=== PATIENT | female | born 1995 | race Caucasian/White ===

== ENCOUNTER 2017-04-07 08:20 | Emergency (ER) | payer OTHER ==
[2017-04-07 08:32] VITALS: BMI 23.1
--- NOTE | 2017-04-07 09:33 | PDOC ---
History of Present Illness - General History Source: Patient Exam Limitations: No Limitations - History of Present Illness Initial Comments: 04/07/17 10:27 The patient is a 22 year old female, with a significant past medical history of migraines, asthma, and anxiety who presents to the emergency department with headache, lightheadedness, nausea, vomiting, and periumbilical pain since last night. 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 She reports typically having emesis along with dizziness during her migraine episodes. She states the periumbilical pain is dull, 3/10 and no a/w any lower abd pain and she feels is related to her migraines. Has a hx of ovarian cyst, but reports this does not feel like that. LMP was 03/28/17. She denies recent fevers or chills. She denies recent diarrhea or constipation. She denies recent dysuria, frequency, urgency or hematuria. She denies recent chest pain or shortness of breath. Allergies: NKA Past surgical history: None reported. Social history: Nonsmoker. Denies EtOH use and recreational drug use. <Clay Patel - Last Filed: 04/07/17 10:26> <Selene Pickard - Last Filed: 04/07/17 11:38> - General Chief Complaint: Pain Stated Complaint: NAUSEA/VOMITING Time Seen by Provider: 04/07/17 09:33 Past History <Clay Patel - Last Filed: 04/07/17 10:26> - Past Medical History Psychiatric Problems: Yes (anxiety) Other medical history: migranes - Suicide/Smoking/Psychosocial Hx Smoking History: Never smoked Hx Alcohol Use: No Drug/Substance Use Hx: No Substance Use Type: None <Selene Pickard - Last Filed: 04/07/17 11:38> - Past Medical History Allergies/Adverse Reactions: Allergies Allergy/AdvReac Type Severity Reaction Status Date / Time No Known Allergies Allergy Verified 04/07/17 08:32 Home Medications: Ambulatory Orders NK [No Known Home Medication] 04/07/17 Review of Systems - Review of Systems Able to Perform ROS?: Yes Comments:: 04/07/17 10:27 GENERAL/CONSTITUTIONAL: No fever or chills. No weakness. HEAD, EYES, EARS, NOSE AND THROAT: No change in vision. No ear pain or discharge. No sore throat. CARDIOVASCULAR: No chest pain or shortness of breath. RESPIRATORY: No cough, wheezing, or hemoptysis. GASTROINTESTINAL: +nausea, vomiting, and lower abdominal pain. No diarrhea or constipation. GENITOURINARY: No dysuria, frequency, or change in urination. MUSCULOSKELETAL: No joint or muscle swelling or pain. No neck or back pain. SKIN: No rash NEUROLOGIC: +headache No vertigo, loss of consciousness, or change in strength/ sensation. ENDOCRINE: No increased thirst. No abnormal weight change. HEMATOLOGIC/LYMPHATIC: No anemia, easy bleeding, or history of blood clots. ALLERGIC/IMMUNOLOGIC: No hives or skin allergy. <Clay Patel - Last Filed: 04/07/17 10:26> *Physical Exam - Vital Signs Last Vital Signs Temp Pulse Resp BP Pulse Ox 98.2 F 88 17 112/58 99 04/07/17 08:30 04/07/17 08:30 04/07/17 08:30 04/07/17 08:30 04/07/17 08:30 - Physical Exam Comments: 04/07/17 10:27 GENERAL: Awake, alert, and fully oriented, in no acute distress HEAD: No signs of trauma EYES: PERRLA, EOMI, sclera anicteric, conjunctiva clear ENT: Auricles normal inspection, hearing grossly normal, nares patent, oropharynx clear without exudates. Moist mucosa NECK: Normal ROM, supple, no lymphadenopathy, JVD, or masses LUNGS: Breath sounds equal, clear to auscultation bilaterally. No wheezes, and no crackles HEART: Regular rate and rhythm, normal S1 and S2, no murmurs, rubs or gallops ABDOMEN: Soft, nontender to deep palpation, normoactive bowel sounds. No guarding, no rebound. No masses EXTREMITIES: Normal range of motion, no edema. No clubbing or cyanosis. No cords, erythema, or tenderness BACK: No midline spinal tenderness in cervical/thoracic/lumbar region NEUROLOGICAL: Normal speech, cranial nerves intact, negative pronator drift, 5/ 5 strength in all 4 extremities, normal sensation to light touch in all 4 extremities, normal cerebellar exam, normal gait, normal reflexes and tone SKIN: Warm, Dry, normal turgor, no rashes or lesions noted. <Clay Patel - Last Filed: 04/07/17 10:26> - Vital Signs Last Vital Signs Temp Pulse Resp BP Pulse Ox 98.2 F 88 17 112/58 99 04/07/17 08:30 04/07/17 08:30 04/07/17 08:30 04/07/17 08:30 04/07/17 08:30 <Selene Pickard - Last Filed: 04/07/17 11:38> ED Treatment Course - LABORATORY CBC & Chemistry Diagram: 04/07/17 09:55 04/07/17 09:55 - ADDITIONAL ORDERS Additional order review: Laboratory Results 04/07/17 04/07/17 09:55 09:25 Magnesium Cancelled Lipase Cancelled Urine HCG, Qual Negative - Medications Given in the ED: ED Medications Discontinued Medications Generic Name Dose Route Start Last Admin Trade Name Aaron PRN Reason Stop Dose Admin Acetaminophen 1,000 mg 04/07/17 09:37 04/07/17 09:50 Tylenol - PO 04/07/17 09:38 975 mg ONCE ONE Administration Metoclopramide HCl 10 mg 04/07/17 09:38 04/07/17 09:50 Reglan Injection - IVPB 04/07/17 09:39 10 mg ONCE ONE Administration Sodium Chloride 1,000 ml 04/07/17 09:37 04/07/17 09:50 Normal Saline - IV 04/07/17 09:38 1,000 ml ONCE ONE Administration <Clay Patel - Last Filed: 04/07/17 10:26> - LABORATORY CBC & Chemistry Diagram: 04/07/17 09:55 04/07/17 09:55 <Selene Pickard - Last Filed: 04/07/17 11:38> Medical Decision Making - Medical Decision Making 04/07/17 10:23 22-year-old female history of migraines, ovarian cyst and generalized anxiety disorder presents with 1 day of call will headache associated with nausea and one episode of emesis this morning. Patient also reports dizziness. All of these symptoms are typical of her usual migraine for which she normally takes Fioricet but has not taken any medication for today. She also reports a dull periumbilical pain. Vitals are unremarkable. Exam is unremarkable with no tenderness to palpation in the abdomen and normal neurologic exam. Likely migraine versus tension headache. Plan: -UPT -basic labs + lipase -reglan/IVF/tylenol -serial abd exam -reassess 04/07/17 11:36 Pt reports headache is greatly improved. Serial abd exams negative for tenderness to palpation. Pt reports pain in abd resolved and she thinks it was gas. Labs unremarkable. Pt requests to go home. I discussed the physical exam findings, ancillary test results and final diagnoses with the patient. I answered all of the patient's questions. The patient was satisfied with the care received and felt comfortable with the discharge plan and treatment plan. The patient will call their primary care physician within 24 hours to arrange follow-up and will return to the Emergency Department with any new, persistent or worsening symptoms. <Selene Pickard - Last Filed: 04/07/17 11:38> *DC/Admit/Observation/Transfer - Attestations Scribe Attestion: 04/07/17 10:27 Documentation prepared by Clay Patel, acting as medical operations supervisor for Selene Pickard MD. <Clay Patel - Last Filed: 04/07/17 10:26> - Discharge Dispostion Admit: No - Attestations Physician Attestion: 04/07/17 11:37 I, Dr. Selene Pickard MD, attest that this document has been prepared under my direction and personally reviewed by me in its entirety. I further attest, that it accurately reflects all work, treatment, procedures and medical decision -making performed by me. <Selene Pickard - Last Filed: 04/07/17 11:38> Diagnosis at time of Disposition: Migraine headache - Discharge Dispostion Disposition: HOME Condition at time of disposition: Stable - Post Discharge Activity Forms/Work/School Notes: Back to Work
[2017-04-07] MEDS ORDERED: SODIUM CHLORIDE 0.9% 500 ML INFUS.BAG IV ONE (09:37)
[2017-04-07] MEDS ORDERED: ACETAMINOPHEN 500 MG TABLET (FP) PO ONE (09:37)
[2017-04-07] MEDS ORDERED: METOCLOPRAMIDE HCL INJECTION 10 MG/2 ML VIAL IVPB ONE (09:38)
[2017-04-07] MEDS ORDERED: ACETAMINOPHEN 325 MG TABLET (FP) ONE (09:46)
[2017-04-07] MEDS ORDERED: METOCLOPRAMIDE HCL INJECTION 10 MG/2 ML VIAL ONE (09:46)
[2017-04-07 10:22] LABS: URINE APPEARANCE SLCLOUDY; URINE BILIRUBIN NEGATIVE (NEGATIVE); URINE BLOOD NEGATIVE (NEGATIVE); URINE COLOR YELLOW; URINE GLUCOSE (UA) NEGATIVE (NEGATIVE); URINE KETONE NEGATIVE (NEGATIVE); URINE LEUK ESTERASE NEGATIVE (NEGATIVE); URINE NITRITE NEGATIVE (NEGATIVE); URINE PROTEIN NEGATIVE (NEGATIVE); URINE UROBILINOGEN NEGATIVE mg/dL (0.2-1.0)
[2017-04-07 10:24] LABS: BASOPHIL 0.5 % (0-2.0); EOSINOPHIL 0.3 % (0-4.5); MCH 28.9 pg (25.7-33.7); MEAN PLT VOLUME 9.4 fl (7.5-11.1); NEUTROPHILS 76.1 % (42.8-82.8); PLATELET COUNT 287 K/MM3 (134-434); RDW 12.5 % (11.6-15.6); WHITE BLOOD COUNT 9.3 K/mm3 (4.0-10.0)
[2017-04-07 10:47] LABS: ALBUMIN 3.9 g/dl (3.4-5.0); ALK PHOS 82 U/L (45-117); ANION GAP 7 (8-16); BILIRUBIN,TOTAL 0.5 mg/dL (0.2-1.0); CALCIUM 9.4 mg/dL (8.5-10.1); CO2 26 mmol/L (21-32); CREATININE 0.8 mg/dL (0.55-1.02); GLUCOSE,RANDOM 80 mg/dL (74-106); MAGNESIUM 2.3 mg/dL (1.8-2.4); SGOT/AST 18 U/L (15-37); SGPT/ALT 21 U/L (12-78); TOT PROT 7.5 g/dl (6.4-8.2)
[2017-04-07 11:52] VITALS: BP 108/63; PULSE 83; TEMP 98.6
== END 2017-04-07 11:51 | disposition home or self-care (01) ==
LOC: JER 08:20
PROC: 3E033GC Introduction of Other Therapeutic Substance into Peripheral Vein, Percutaneous Approach (ICD-10-PCS; principal; 2017-04-07)
DX: G43.909 Migraine, unspecified, not intractable, without status migrainosus (principal); J45.909 Unspecified asthma, uncomplicated; F41.9 Anxiety disorder, unspecified
CPT/HCPCS: 36415; 80053; 81003; 83690; 83735; 84703; 85025; 87086; 99283-25

== ENCOUNTER 2018-08-18 10:43 | Emergency (ER) | payer OTHER ==
[2018-08-18 10:52] VITALS: BP 102/70; PULSE 90; TEMP 98.7; BMI 20.9
--- NOTE | 2018-08-18 11:05 | PDOC ---
Post Exposure HPI - General Chief Complaint: Blood/Body Fluid Exposure SJR Stated Complaint: BODILY FLUIDS Time Seen by Provider: 08/18/18 10:52 History Source: Patient Exam Limitations: No Limitations - History of Present Illness Timing: just prior to arrival Past History - Past Medical History Allergies/Adverse Reactions: Allergies Allergy/AdvReac Type Severity Reaction Status Date / Time No Known Allergies Allergy Verified 08/18/18 10:48 Home Medications: Ambulatory Orders Acetaminophen/Caffeine/Butalb [Fioricet -] 1 tab PO Q4H PRN 08/18/18 Erenumab-Aooe [Aimovig Autoinjector] 70 mg SQ MONTHLY 08/18/18 Ondansetron [Zofran *Odt*] 8 mg SL TID PRN 08/18/18 Psychiatric Problems: Yes (anxiety) - Suicide/Smoking/Psychosocial Hx Smoking History: Never smoked Hx Alcohol Use: No Drug/Substance Use Hx: No Substance Use Type: None *Physical Exam - Vital Signs Last Vital Signs Temp Pulse Resp BP Pulse Ox 98.7 F 90 18 102/70 99 08/18/18 10:51 08/18/18 10:51 08/18/18 10:51 08/18/18 10:51 08/18/18 10:51 *DC/Admit/Observation/Transfer - Referrals - Patient Instructions
--- NOTE | 2018-08-18 11:11 | PDOC ---
Post Exposure HPI - General Chief Complaint: Blood/Body Fluid Exposure SJR Stated Complaint: BODILY FLUIDS Time Seen by Provider: 08/18/18 10:52 History Source: Patient Exam Limitations: No Limitations - History of Present Illness Initial Comments: 08/18/18 11:55 HPI: This 23 yr old female [employer]ING [employer] employee was working when she got splashed in the face with a pt's urine. She irrigated it with saline on floor and came for exposure work up and precautions to the ER. She has no visual problems or difficulty in seeing, drainage or tearing, no redness, swelling or poor visualization. Chief Compliant:exporsure PMH: denies FH: Pt has not recently traveled outside the country in the last 30 days. Pt has not been in contact with people who have traveled out of the country, in contact with people who have been ill with fever, n, v, d. SH: smoking use: NONE illicit drug use: NONE alcohol use: NONE employment/educational status: sexual history: PSH: Denies Home med use noted on SEP Allergies: NKA Immunizations: PCP: Timing: just prior to arrival Severity: mild Exposed Location: Right: Eye(s) Assessing Significant Risk PEP: Yes Potentially Infectious Fluid (urine) Past History - Past Medical History Allergies/Adverse Reactions: Allergies Allergy/AdvReac Type Severity Reaction Status Date / Time No Known Allergies Allergy Verified 08/18/18 10:48 Home Medications: Ambulatory Orders Erenumab-Aooe [Aimovig Autoinjector] 70 mg SQ MONTHLY 08/18/18 Erythromycin 0.5% Eye Ointment [Erythromycin 0.5% Eye Ointment -] 1 applic OU BID 7 Days #1 tube 08/18/18 Psychiatric Problems: Yes (anxiety) - Suicide/Smoking/Psychosocial Hx Smoking History: Never smoked Hx Alcohol Use: No Drug/Substance Use Hx: No Substance Use Type: None Review of Systems - Review of Systems Able to Perform ROS?: Yes Comments:: 08/18/18 11:47 General statement: eye exposure to urine Hematology: neg history of bleeding/blood thinners Skin: Neg for lesions, rash, bruising. HEENT: Neg symptoms Respiratory: Neg SOB or difficulty in breathing Cardiac: Neg chest pain GI: Neg pain, n/v : Neg problems on voiding MS: Neg for joint pain/stiffness, no edema Neuro: Neg for LOC, weakness, Endocrine: Neg for excess thirst/hunger, cold/heat intolerance, excess sweating Allergies: Neg for allergies *Physical Exam - Vital Signs Last Vital Signs Temp Pulse Resp BP Pulse Ox 98.7 F 90 18 102/70 99 08/18/18 10:51 08/18/18 10:51 08/18/18 10:51 08/18/18 10:51 08/18/18 10:51 - Physical Exam Comments: 08/18/18 11:55 General Appearance: This well appearing 89-year-old female V/S: hemodynamically stable, afebrile Skin: WNL of pt's skin color, no signs of pallor, mottling, cyanosis Head:symmetrical Eyes: EOM's intact, PERRLA, no tearing, no swelling, no redness, no visual disturbances, no headaches Ears: denies pain Nose: patent Throat: lips, teeth, gums, tongue, buccal mucos pink and moist Lungs: Chest symmetry equal. Cap refill <3 seconds. Lung sounds clear Cardiac: PMI at R 4MCL space, pos S1 and S2, regular rate. Abdomen: Soft, round, nontender : Not observed Muscularskeletal: Gait steady, ambulated in to ER, no edema +PMS Neuro: AAOx3, cognitively intact, speech clear and appropriate. Post Exposure - ED Protocol - Exposure Treatment Washing/Decontamination: Saline Source Patient HIV Status:: Unknown Is PEP indicated?: No Prophylaxis for HIV discussed?: Yes Prophylaxis given?: No Drug(s) Information Sheets given:: No Baseline bloods drawn prophylaxis:(use *Exposure-Hosp Emp): Yes - Referrals Employee Referred to Employee Health:: Yes Employee Referred to Infectious Disease Specialist:: Anup Etienne (eye dr) Medical Decision Making - Medical Decision Making 08/18/18 12:12 I have seen this patient. 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 It was irrigated on the floor and then she came down to the ER for further evaluation. There is no eye irrigation or disturbances. As discussed as post exposure patient opted for the HIV testing. Discussed with her prophylactic medication in great length. I spoke with the nurse on the floor and she is not aware that the patient has any HIV nor is he on any of those medications. He does have a positive UA. I am treating her eye with erythromycin as a prophylactic. Patient is going to be sent to the occupational health before returning back to work. 08/18/18 13:28 HIV neg pt being discharged to occupation healt *DC/Admit/Observation/Transfer Diagnosis at time of Disposition: Occupational exposure in workplace - Discharge Dispostion Disposition: HOME Condition at time of disposition: Stable Decision to Admit order: No - Prescriptions Prescriptions: Erythromycin 0.5% Eye Ointment [Erythromycin 0.5% Eye Ointment -] 1 applic OU BID 7 Days #1 tube - Referrals - Patient Instructions Printed Discharge Instructions: How to Handle Body Fluid Exposure -- Healthcare Worker Additional Instructions: Discharge instructions 1 follow back up with your occupational health. Do not touch your eyes. Irrigate with saline when needed. Continue to use erythromycin ointment for one week. Wear an eye shield when handling any bodily fluids from a patient. - Post Discharge Activity Forms/Work/School Notes: Back to Work
[2018-08-18] MEDS ORDERED: ERYTHROMYCIN 0.5% OPHTHALMIC OINTMENT 3.5 GM TUBE OU ONE (11:38)
[2018-08-18] MEDS ORDERED: ERYTHROMYCIN 0.5% OPHTHALMIC OINTMENT 3.5 GM TUBE ONE (11:43)
== END 2018-08-18 13:38 | disposition home or self-care (01) ==
LOC: JER 10:43 → JERFT 10:43
DX: Z77.21 Contact with and (suspected) exposure to potentially hazardous body fluids (principal); X58.XXXA Exposure to other specified factors, initial encounter; Y93.F9 Activity, other caregiving; Y92.238 Other place in hospital as the place of occurrence of the external cause; Y99.0 Civilian activity done for income or pay
CPT/HCPCS: 36415; 87389; 99281-25

== ENCOUNTER 2019-06-29 08:54 | Emergency (ER) | payer SELFPAY ==
[2019-06-29 09:04] VITALS: BMI 20.9
--- NOTE | 2019-06-29 09:08 | PDOC ---
History of Present Illness - General Chief Complaint: Migraine Headache Stated Complaint: CHRONIC HEADACHE Time Seen by Provider: 06/29/19 09:08 - History of Present Illness Initial Comments: 24 year old female with PMH of migraines, anxiety, and asthma presenting with headache of gradual onset while at work this morning in our ED. She attempted to use a hot towel around her neck suggested by this author. It mildly relieved her symptoms but they started to worsen shortly after so she decided to seek care. She has received Botox injections and nerve blocks (as recently as yesterday afternoon) for her migraines. She usually takes fiorecet or other OTC medications but was at work and did not have access to her meds today. She does admit to some mild concomitant nausea but no vomiting. Denies any recent fevers , chills, chest pains, diarrhea, constipation, dysuria, or other symptoms. 06/29/19 09:38 Past History - Past Medical History Allergies/Adverse Reactions: Allergies Allergy/AdvReac Type Severity Reaction Status Date / Time No Known Allergies Allergy Verified 06/29/19 09:00 Home Medications: Ambulatory Orders Erenumab-Aooe [Aimovig Autoinjector] 70 mg SQ MONTHLY 08/18/18 Ketorolac Tromethamine [Toradol] 10 mg PO TID PRN 06/29/19 Metoclopramide HCl [Reglan -] 10 mg PO ASDIR 06/29/19 Naproxen Sodium [Naproxen Sodium Cr] 500 mg PO PCHS PRN 10 Days #60 tbmp.24hr Ondansetron [Zofran *Odt*] 8 mg SL TID PRN 06/29/19 Sumatriptan Succinate [Imitrex Injection -] 6 mg SQ ASDIR 06/29/19 Psychiatric Problems: Yes (anxiety) - Psycho Social/Smoking Cessation Hx Smoking History: Never smoked Hx Alcohol Use: No Drug/Substance Use Hx: No Substance Use Type: None Review of Systems - Review of Systems Constitutional: No: Chills, Diaphoresis, Fever HEENTM: No: Eye Pain, Blurred Vision, Tearing, Recent change in vision, Double Vision Respiratory: No: Cough, Orthopnea, Shortness of Breath Cardiac (ROS): No: Chest Pain, Edema, Irregular Heart Rate, Lightheadedness, Palpitations ABD/GI: No: Diarrhea, Nausea, Vomiting : No: Burning, Dysuria, Discharge Musculoskeletal: No: Back Pain, Joint Pain, Joint Swelling Neurological: Yes: Headache. No: Numbness, Paresthesia Psychiatric: Yes: Anxiety. No: Depression *Physical Exam - Vital Signs Last Vital Signs Temp Pulse Resp BP Pulse Ox 97.8 F 95 H 18 112/68 98 06/29/19 09:02 06/29/19 09:02 06/29/19 09:02 06/29/19 09:02 06/29/19 09:02 - Physical Exam General Appearance: Yes: Nourished, Appropriately Dressed. No: Apparent Distress HEENT: positive: EOMI, JOVITA, Normal ENT Inspection, Normal Voice Neck: positive: Trachea midline, Normal Thyroid, Supple. negative: Tender, Rigid Respiratory/Chest: positive: Lungs Clear, Normal Breath Sounds. negative: Chest Tender, Respiratory Distress, Accessory Muscle Use Cardiovascular: positive: Regular Rhythm, Regular Rate Gastrointestinal/Abdominal: positive: Normal Bowel Sounds, Flat, Soft. negative : Tender Lymphatic: negative: Adenopathy, Tenderness Musculoskeletal: positive: Normal Inspection. negative: Decreased Range of Motion Extremity: positive: Normal Capillary Refill, Normal Inspection, Normal Range of Motion. negative: Tender Integumentary: positive: Normal Color, Dry, Warm Neurologic: positive: Fully Oriented, Alert, Normal Mood/Affect, Normal Response , Motor Strength 5/5 Medical Decision Making - Medical Decision Making 24 year old female with PMH of migraines presenting with headache identical to her previous migraines. HCG negative and symptoms improved after Toradol 15 IV, Reglan 10 PO, normal saline 1000 mL, hot towel to neck, and brief rest. Patient discharged with return precautions and follow up instructions. 06/29/19 09:45 Discharge - Discharge Information Problems reviewed: Yes Clinical Impression/Diagnosis: Migraine Qualifiers: Migraine type: with aura Status migrainosus presence: without status migrainosus Intractability: not intractable Qualified Code(s): G43.109 - Migraine with aura, not intractable, without status migrainosus Disposition: HOME - Admission No - Additional Discharge Information Prescriptions: Naproxen Sodium [Naproxen Sodium Cr] 500 mg PO PCHS PRN 10 Days #60 tbmp.24hr PRN Reason: Headache - Follow up/Referral Referrals: Abbe Tong MD [Staff Physician] - - Patient Discharge Instructions Patient Printed Discharge Instructions: DI for Migraine Additional Instructions: Please take your medications as needed. Please follow up with your neurologist. You can use the one on this sheet if you need a new one or a second opinion regarding the management of your migraine. Please return to the ED if you have new or worsening symptoms. - Post Discharge Activity
[2019-06-29] MEDS ORDERED: METOCLOPRAMIDE HCL 10 MG TABLET (FP) PO ONE ×2 (09:15→09:22)
[2019-06-29] MEDS ORDERED: KETOROLAC TROMETHAMINE 15 MG/ML VIAL IVPUSH ONE (09:15)
--- NOTE | 2019-06-29 09:19 | PDOC ---
Attending Attestation - Resident Resident Name: Santi Beavers - ED Attending Attestation I have performed the following: I have examined & evaluated the patient, The case was reviewed & discussed with the resident, I agree w/resident's findings & plan, Exceptions are as noted - HPI HPI: 06/29/19 09:19 24y F hx of migraine headaches presents with headache since last night. Patient endorses pressure-like pain in the back of her neck, she had taken medications home with improvement. She had felt well this morning came to work and then felt her headache starting again. Patient denies any focal neurologic symptoms including vision changes, numbness, tingling, weakness, fever, chills. The pain is consistent with a prior headache. Physical Exam: Well appeaing No acut distress Moving all 4 xtrmitie spontneouslly and symmetrically normal gait suspect migraine headache will treat with toradol - Physicial Exam PE: 06/29/19 11:28 see above - Medical Decision Making 06/29/19 11:27 Patient is feeling improved status post Toradol will discharge with close follow -up with neurology I discussed the physical exam findings, ancillary test results and final diagnoses with the patient. I answered all of the patient's questions. The patient was satisfied with the care received and felt comfortable with the discharge plan and treatment plan. The patient will call their primary care physician within 24 hours to arrange follow-up and will return to the Emergency Department with any new, persistent or worsening symptoms.
[2019-06-29] MEDS ORDERED: SODIUM CHLORIDE 0.9% 500 ML INFUS.BAG IV ONE (09:26)
[2019-06-29] MEDS ORDERED: KETOROLAC TROMETHAMINE 15 MG/ML VIAL ONE ×2 (09:58→10:22)
[2019-06-29 10:58] VITALS: BP 101/67; PULSE 82; TEMP 97.9
== END 2019-06-29 11:28 | disposition home or self-care (01) ==
LOC: JER 08:54
PROC: 3E0333Z Introduction of Anti-inflammatory into Peripheral Vein, Percutaneous Approach (ICD-10-PCS; principal; 2019-06-29)
DX: G43.109 Migraine with aura, not intractable, without status migrainosus (principal); F41.9 Anxiety disorder, unspecified
CPT/HCPCS: 84703; 99283-25

== ENCOUNTER 2021-01-03 10:55 | Emergency (ER) | payer OTHER, SELFPAY ==
[2021-01-03 11:03] VITALS: BP 129/82; PULSE 86; TEMP 98.2; BMI 22.6
[2021-01-03] MEDS ORDERED: SODIUM CHLORIDE 1,000 ML IV STA (11:10)
[2021-01-03] MEDS ORDERED: METOCLOPRAMIDE HCL INJECTION 10 MG/2 ML VIAL IVPB ONE (11:10)
[2021-01-03] MEDS ORDERED: KETOROLAC TROMETHAMINE 30 MG/1 ML VIAL IVPUSH ONE (11:10)
[2021-01-03] MEDS ORDERED: METOCLOPRAMIDE HCL INJECTION 10 MG/2 ML VIAL ONE (11:18)
[2021-01-03] MEDS ORDERED: KETOROLAC TROMETHAMINE 30 MG/1 ML VIAL ONE (11:18)
[2021-01-03 12:43] LABS: BASO % 0.5 % (0-2.0); EOS % 0.3 % (0-4.5); HEMATOCRIT 37.6 % (32.4-45.2); HEMOGLOBIN 12.6 GM/dL (10.7-15.3); LYMPH % 17.4 % (8-40); MCH 28.7 pg (25.7-33.7); MCHC 33.6 g/dl (32.0-36.0); MEAN CELL VOLUME 85.4 fl (80-96); MEAN PLT VOLUME 8.9 fl (7.5-11.1); MONO % 4.8 % (3.8-10.2); PLATELET COUNT 368 10^3/uL (134-434); WHITE BLOOD COUNT 12.5 K/mm3 (4.0-10.0)
[2021-01-03 12:57] LABS: BLOOD UREA NITROGEN 12.8 mg/dL (7-18); CALCIUM 8.4 mg/dL (8.5-10.1)
[2021-01-03 12:58] LABS: ALBUMIN 3.5 g/dl (3.4-5.0)
[2021-01-03 13:00] LABS: CREATININE 0.6 mg/dL (0.55-1.3)
[2021-01-03 13:02] LABS: BILIRUBIN,TOTAL 0.5 mg/dL (0.2-1); TOT PROT 6.9 g/dl (6.4-8.2)
== END 2021-01-03 13:30 | disposition home or self-care (01) ==
LOC: JER 10:55
PROC: 3E0333Z Introduction of Anti-inflammatory into Peripheral Vein, Percutaneous Approach (ICD-10-PCS; principal; 2021-01-03)
PROC: 3E033GC Introduction of Other Therapeutic Substance into Peripheral Vein, Percutaneous Approach (ICD-10-PCS; 2021-01-03)
PROC: 3E0337Z Introduction of Electrolytic and Water Balance Substance into Peripheral Vein, Percutaneous Approach (ICD-10-PCS; 2021-01-03)
DX: R51.9 Headache, unspecified (principal)
CPT/HCPCS: 36415; 80053; 80061; 83721; 84436; 84443; 84479; 84703; 85025; 99284-25

== ENCOUNTER 2024-05-14 09:51 | Emergency (ER) | payer OTHER ==
[2024-05-14 09:58] VITALS: BP 115/83; PULSE 104; RESP 18; TEMP 98.5; BMI 18.3
[2024-05-14] MEDS: SODIUM CHLORIDE 0.9% 500 ML INFUS.BAG IV ONE (11:07)
[2024-05-14] MEDS ORDERED: KETOROLAC TROMETHAMINE 15 MG/ML VIAL ONE (11:16)
[2024-05-14] MEDS ORDERED: LIDOCAINE 5% TOPICAL PATCH ONE (11:16)
[2024-05-14] MEDS ORDERED: MAGNESIUM 1GM/D5W - 1 GM/100 ML IVPB IVPB ONE (11:16)
[2024-05-14] MEDS ORDERED: METOCLOPRAMIDE HCL INJECTION 10 MG/2 ML VIAL ONE (11:16)
[2024-05-14] MEDS: MAGNESIUM SULF 50% (8.12 MEQ/2 ML-1 GM VIAL) IVPB ONE (11:35)
[2024-05-14] MEDS: METOCLOPRAMIDE HCL INJECTION 10 MG/2 ML VIAL IVPB ONE (11:35)
[2024-05-14] MEDS: KETOROLAC TROMETHAMINE 30 MG/1 ML VIAL IVPUSH ONE (11:35)
[2024-05-14] MEDS: LIDOCAINE 5% TOPICAL PATCH TP ONE (11:35)
== END 2024-05-14 12:34 | disposition home or self-care (01) ==
LOC: JER 09:51
PROC: 3E0333Z Introduction of Anti-inflammatory into Peripheral Vein, Percutaneous Approach (ICD-10-PCS; principal; 2024-05-14)
PROC: 3E033GC Introduction of Other Therapeutic Substance into Peripheral Vein, Percutaneous Approach (ICD-10-PCS; 2024-05-14)
PROC: 3E033GC Introduction of Other Therapeutic Substance into Peripheral Vein, Percutaneous Approach (ICD-10-PCS; 2024-05-14)
DX: R51.9 Headache, unspecified (principal); M54.2 Cervicalgia
CPT/HCPCS: 36415; 84703; 96374; 96375; 99284-25